=== PATIENT | female | born 1990 | race Hispanic/Latino ===

== ENCOUNTER 2017-07-31 15:05 | Emergency (ER) | payer MEDICAID ==
--- NOTE | 2017-07-31 15:23 | ERNOTE ---
ER Female HPI Date of Service: 07/31/17 Stated Complaint: bladderr inf? Presenting Symptoms: dysuria Time Seen by Provider: 07/31/17 15:10 Source: patient Exam Limitations: no limitations Immunizations: IMMUNIZATION HX Immunizations Up to Date Yes History of Influenza Vaccine Yes Hx Pneumococcal Vaccination No Allergies/Adverse Reactions: Allergies azithromycin [From Zithromax Z-Felix] Allergy (Verified 07/31/17 15:20) clarithromycin [From Biaxin] Allergy (Verified 07/31/17 15:20) codeine [Codeine] Allergy (Verified 07/31/17 15:20) Penicillins Allergy (Verified 07/31/17 15:20) Home Medications: HOME MEDICATIONS Albuterol Sulfate [Proair Hfa] 2 puff IH QID PRN 10/24/15 [Last Taken Unknown] Sulfamethoxazole/Trimethoprim [Bactrim Ds] 1 tab PO BID #20 tab 07/31/17 [Last Taken Unknown] - History of Present Illness Narrative: Patient presents to the ED for possible bladder infection. She relates that since 3 am she has been having dysuria, frequent urination, some blood in the urine. She has had UTIs in the past and it has been like this before. She relates no fever, flank pain or vomiting. She relates some occasional mild suprapubic cramping. No localizing abdominal pain. Has not seen anyone else for this. Timing: Present: constant Quality: Present: moderate Onset Location: Present: other - dysuria Radiation: Present: none Prior Abdominal Problems: Present: similar symptoms, other - similar Sx with UTI Modifying Factors - (Improves): Present: other - nothing Modifying Factors - (Worsens): Present: urinating Associated Symptoms: Present: dysuria, urinary frequency. Absent: fever/chills , nausea, vomiting, loss of bladder control, low back pain Prior Treatment: Absent: recently seen Review of Systems - Review of Systems Constitutional: Absent: fever Respiratory: Absent: shortness of breath Cardiology: Absent: chest pain Gastrointestinal/Abdominal: Present: See HPI Genitourinary: Present: See HPI Musculoskeletal: Absent: back pain Skin: Absent: rash Neurological: Absent: weakness - Patient's Past Medical History Patient History - Medical: No pertinent hx Patient History - Cardiac/Respiratory: Asthma Patient History - Cancer: No Hx of Cancer Patient History - Surgical Procedures: , T & A Patient History - Other: None - Family History Mother Family History - Medical: No pertinent hx Family History - Cardiac/Respiratory: No pertinent hx Father Family History - Medical: No pertinent hx - Social History Abuse History: No History of abuse Psych History: No pertinent hx - Immunizations Immunizations Up to Date: Yes Hx Pneumococcal Vaccination: No History of Influenza Vaccine: Yes Physical Exam - Physical Exam General Appearance: Present: alert, no apparent distress, other - smiling, interactive, non-toxic, no distress Head Exam: Present: normal inspection Eye Exam: Normal inspection: bilateral Ears, Nose, Throat: Present: normal ENT inspection Neck: Present: normal inspection Respiratory: Present: no respiratory distress, normal breath sounds, lungs clear Cardiovascular/Chest: Present: regular rate, rhythm Gastrointestinal/Abdominal: Present: normal bowel sounds, nontender, soft. Absent: tenderness Back Exam: Absent: CVA tenderness (R), CVA tenderness (L) Extremity Exam: Present: normal inspection Neurological Exam: Present: alert, normal mood/affect, no motor/sensory deficits Skin Exam: Present: normal color, warm/dry ED Progress - Results and Orders Patient's Lab Results:: I have reviewed the patient's lab results. - Vital Signs Patient's Vital Signs:: I have reviewed the patient's vital signs. - Progress/Reassessment Progress Note-Subjective: 07/31/17 17:02 Nelia has mild UTI, she has Hx of same. Nothing to suggest kidney stone, pyelo, sepsis or toxicity or appendicitis. She has no abdominal tenderness at this time. She is requesting to go home. I discussed warning signs and reasons to return as well as the need for close f/u. At this time I do not see a clear indication for imaging. Departure Clinical Impression: UTI (urinary tract infection) - Departure Disposition: Home self-care Condition: Stable Instructions: Urinary Tract Infection, Adult, [id number] Additional Instructions: Rest. Fluids. Antibiotics as directed. Follow-up with your doctor within 3 days for a re-check. Return here for fever, vomiting, flank pain or if your condition worsens or changes in any way. Referrals: Winter Duff MD [Primary Care Provider] - Prescriptions: Sulfamethoxazole/Trimethoprim [Bactrim Ds] 1 tab PO BID #20 tab
[2017-07-31 15:58] LABS: Urine Bilirubin Negative (NEGATIVE); Urine Blood 250 /ul (NEGATIVE); Urine Ketone Negative (NEGATIVE); Urine Nitrite Negative (NEGATIVE); Urine Protein 15 mg/dL (NEGATIVE); Urine Urobilinogen Normal (NORMAL); Urine pH 6.5 pH (5.0-7.0)
[2017-07-31 16:18] LABS: Urine Appearance Clear; Urine Color Yellow; Urine WBC 0-5 /hpf (0-5)
[2017-07-31 16:19] LABS: Urine Bacteria 1+
[2017-07-31 17:35] VITALS: BP 120/69
== END 2017-07-31 17:10 | disposition home or self-care (01) ==
LOC: ER 15:05
DX: N39.0 Urinary tract infection, site not specified (principal)